=== PATIENT | male | born 2005 | race Caucasian/White ===

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

== ENCOUNTER 2025-04-30 04:02 | Emergency (ER) | payer SELFPAY | END 2025-04-30 05:00 | disposition left against medical advice (07) | LOC: LL.ED 04:02 | DX: M79.601 Pain in right arm (principal); S80.211A Abrasion, right knee, initial encounter; Y04.0XXA Assault by unarmed brawl or fight, initial encounter | CPT/HCPCS: 73060-RT; 73090-RT; 99284 ==